=== PATIENT | female | born 1950 | race Caucasian/White ===

== ENCOUNTER 2018-02-01 13:23 | Inpatient (IN) ==
[2018-02-01] MEDS ORDERED: DIGOXIN 0.5 MG/2 ML AMP IV ONE (14:44)
[2018-02-01 15:25] LABS: Basophils % 0.6 % (0.0-0.8); Eosinophils # 0.1 10*3/uL (0.0-0.87); Eosinophils % 1.6 % (0.00-10.9); Hemoglobin 15.3 GM/DL (12.0-16.0); Immature Granulocytes % 0.3 %; Immature Granulocytes Absolute 0.02 #; Lymphocytes # 1.4 10*3/uL (1.4-4.0); Lymphocytes % 22.1 % (21.3-54.2); Mean Corpuscular HGB Conc 34.8 GM/DL (32-36); Mean Corpuscular Hemoglobin 31 PG (27-34); Mean Corpuscular Volume 90.3 FL (87-102); Mean Platelet Volume 10.8 FL (9.6-12.0); Monocytes # 0.4 10*3/uL (0.11-0.8); Monocytes % 6.6 % (1.7-12.7); Neutrophils # 4.3 10*3/uL (1.4-7.4); Neutrophils % 68.8 % (38.7-73.9); Platelet Count 202 T/CUMM (130-400); Red Blood Count 4.87 MC/CUMM (3.8-5.5); Red Cell Distribution Width 12.5 % (9.3-17.3); White Blood Count 6.2 T/CUMM (4-12)
[2018-02-01] MEDS: FUROSEMIDE 40 MG/4 ML VIAL IV SCH (15:38)
[2018-02-01] MEDS: DILTIAZEM INJ 100 MG in SODIUM CHLORIDE 0.9% 100 ML IV SCH (15:39)
[2018-02-01] MEDS ORDERED: diphenhydrAMINE 25 MG/10 ML UDCUP PO PRN (15:45)
[2018-02-01] MEDS ORDERED: ONDANSETRON 4 MG/2 ML VIAL IV PRN (15:46)
[2018-02-01] MEDS ORDERED: MAGNESIUM HYDROXIDE SUSP 30 ML UDCUP PO PRN (15:46)
[2018-02-01 15:48] LABS: Albumin 3.9 G/DL (3.4-5.0); Bilirubin,Total 0.5 MG/DL (0.2-1.0); Calcium 9.7 MG/DL (8.5-10.1); Osmolality,Calculated 285.3 MOS/KG (273-304); Potassium 3.9 MMOL/L (3.5-5.1); Total Protein 7.3 G/DL (6.4-8.3)
[2018-02-01] MEDS: RIVAROXABAN 20 MG TABLET PO SCH (16:20)
[2018-02-01 17:06] LABS: Apearance,Urine CLEAR (Clear); Bilirubin,Urine Negative (Negative); Blood, Urine Negative (Negative); Glucose,Urine (UA) Negative (Negative); Ketones,Urine Negative (Negative); Mucus,Urine Occasional /LPF (Occasional); Nitrite,Urine Negative (Negative); Protein,Urine Negative; Squamous Epithelial Cell,Urine Occasional /HPF (0-10); Urine Color Colorless (Yellow); Urine Specific Gravity 1.003 (1.001-1.035); Urine Urobilinogen < 2.0 EU/DL (0.2-1.0); WBC,Urine 1 /HPF (0-6)
[2018-02-01] MEDS: POTASSIUM CHLORIDE 20 MEQ TABLET PO SCH (20:22)
[2018-02-01] MEDS: ASCORBIC ACID 500 MG TABLET PO SCH (20:22)
[2018-02-01] MEDS ORDERED: [UNRECOGNIZED DRUG - OTHER] PO SCH (21:00)
[2018-02-01] MEDS: PANTOPRAZOLE 40 MG TABLET PO SCH (21:22)
[2018-02-02 05:08] LABS: Basophils % 0.7 % (0.0-0.8); Eosinophils # 0.1 10*3/uL (0.0-0.87); Eosinophils % 2.3 % (0.00-10.9); Immature Granulocytes % 0.4 %; Immature Granulocytes Absolute 0.02 #; Lymphocytes # 1.7 10*3/uL (1.4-4.0); Lymphocytes % 29.5 % (21.3-54.2); Mean Corpuscular HGB Conc 34.9 GM/DL (32-36); Mean Corpuscular Hemoglobin 32 PG (27-34); Mean Corpuscular Volume 90.3 FL (87-102); Mean Platelet Volume 10.5 FL (9.6-12.0); Monocytes # 0.5 10*3/uL (0.11-0.8); Monocytes % 8.7 % (1.7-12.7); Neutrophils # 3.3 10*3/uL (1.4-7.4); Neutrophils % 58.4 % (38.7-73.9); Platelet Count 210 T/CUMM (130-400); Red Blood Count 4.76 MC/CUMM (3.8-5.5); Red Cell Distribution Width 12.4 % (9.3-17.3); White Blood Count 5.6 T/CUMM (4-12)
[2018-02-02 05:43] LABS: Calcium 8.7 MG/DL (8.5-10.1); Osmolality,Calculated 286.1 MOS/KG (273-304); Potassium 3.6 MMOL/L (3.5-5.1); Risk Ratio 2.93; VLDL CHOLESTEROL 11.6 MG/DL
[2018-02-02] MEDS ORDERED: POTASSIUM CHLORIDE 20 MEQ TABLET PO SCH (09:00)
[2018-02-02] MEDS ORDERED: [UNRECOGNIZED DRUG - OTHER] PO SCH (09:00)
[2018-02-02] MEDS ORDERED: PANTOPRAZOLE 40 MG TABLET PO SCH (09:00)
[2018-02-02] MEDS ORDERED: ALFALFA COMPLEX PO SCH (09:00)
[2018-02-02] MEDS: ASCORBIC ACID 500 MG TABLET PO SCH ×2 (09:01→21:05)
[2018-02-02] MEDS: FUROSEMIDE 40 MG/4 ML VIAL IV SCH (09:01)
[2018-02-02] MEDS: CHOLECALCIFEROL 1,000 UNIT TABLET PO SCH (09:01)
[2018-02-02] MEDS: POTASSIUM CHLORIDE 20 MEQ TABLET PO SCH (09:01)
[2018-02-02] MEDS: DILTIAZEM INJ 100 MG in SODIUM CHLORIDE 0.9% 100 ML IV SCH (09:02)
[2018-02-02] MEDS ORDERED: DILTIAZEM 30 MG TABLET PO SCH (12:30)
[2018-02-02] MEDS ORDERED: DILTIAZEM 30 MG TABLET PO ONE ×2 (12:30→16:00)
[2018-02-02] MEDS ORDERED: DILTIAZEM CD 180 MG CAPSULE PO ONE (14:45)
[2018-02-02] MEDS ORDERED: SODIUM CHLORIDE 0.9% 500 ML IV ONE (14:47)
[2018-02-02] MEDS: RIVAROXABAN 20 MG TABLET PO SCH (16:29)
[2018-02-02] MEDS: SODIUM CHLORIDE 0.9% 1,000 ML IV SCH (17:49)
[2018-02-02] MEDS: PANTOPRAZOLE 40 MG TABLET PO SCH (21:06)
[2018-02-02] MEDS: DILTIAZEM CD 180 MG CAPSULE PO SCH (21:06)
[2018-02-03] MEDS: SODIUM CHLORIDE 0.9% 1,000 ML IV SCH (04:20)
[2018-02-03 05:53] LABS: Basophils % 0.6 % (0.0-0.8); Eosinophils # 0.2 10*3/uL (0.0-0.87); Eosinophils % 3.1 % (0.00-10.9); Hemoglobin 15.2 GM/DL (12.0-16.0); Immature Granulocytes % 0.2 %; Immature Granulocytes Absolute 0.01 #; Lymphocytes # 1.2 10*3/uL (1.4-4.0); Lymphocytes % 23.4 % (21.3-54.2); Mean Corpuscular HGB Conc 34.5 GM/DL (32-36); Mean Corpuscular Hemoglobin 32 PG (27-34); Mean Corpuscular Volume 91.1 FL (87-102); Mean Platelet Volume 10.6 FL (9.6-12.0); Monocytes # 0.5 10*3/uL (0.11-0.8); Monocytes % 9.1 % (1.7-12.7); Neutrophils # 3.3 10*3/uL (1.4-7.4); Neutrophils % 63.6 % (38.7-73.9); Platelet Count 201 T/CUMM (130-400); Red Blood Count 4.83 MC/CUMM (3.8-5.5); Red Cell Distribution Width 12.4 % (9.3-17.3); White Blood Count 5.2 T/CUMM (4-12)
[2018-02-03 06:27] LABS: Calcium 8.7 MG/DL (8.5-10.1); Potassium 4.3 MMOL/L (3.5-5.1)
[2018-02-03] MEDS ORDERED: FUROSEMIDE 40 MG TABLET PO SCH (09:00)
[2018-02-03] MEDS: DILTIAZEM CD 180 MG CAPSULE PO SCH (09:20)
[2018-02-03] MEDS: CHOLECALCIFEROL 1,000 UNIT TABLET PO SCH (09:20)
[2018-02-03] MEDS: ASCORBIC ACID 500 MG TABLET PO SCH (09:20)
[2018-02-03] MEDS: POTASSIUM CHLORIDE 20 MEQ TABLET PO SCH (09:20)
[2018-02-03 12:07] VITALS: BP 119/76
== END 2018-02-03 13:45 | disposition home or self-care (01) | DRG 310 ==
LOC: N.TELEN 14:12
PROVIDERS: ADMIT Internal Medicine Cardiovascular Disease; ATTEND Internal Medicine Cardiovascular Disease

== ENCOUNTER 2020-08-05 10:32 | Inpatient (IN) ==
[2020-08-05 11:58] LABS: Basophils % 0.2 % (0.0-0.8); Eosinophils % 0.7 % (0.00-10.9); Hematocrit 45.9 VOL% (35.7-47.0); Hemoglobin 16.3 GM/DL (12.0-16.0); Immature Granulocytes % 0.5 %; Immature Granulocytes Absolute 0.03 #; Lymphocytes # 0.5 10*3/uL (1.4-4.0); Lymphocytes % 8.1 % (21.3-54.2); Mean Corpuscular HGB Conc 35.5 GM/DL (32-36); Mean Corpuscular Volume 92.4 FL (87-102); Mean Platelet Volume 11.3 FL (9.6-12.0); Monocytes % 4.5 % (1.7-12.7); Platelet Count 140 T/CUMM (130-400); Red Blood Count 4.97 MC/CUMM (3.8-5.5); White Blood Count 5.8 T/CUMM (4-12)
[2020-08-05 12:05] LABS: INR 1.2
[2020-08-05 12:16] LABS: Anisocytosis Slight; Macrocytosis 1+; Platelet Estimate Adequate
[2020-08-05 12:22] LABS: Calcium 8.8 MG/DL (8.5-10.1); Osmolality,Calculated 289.1 MOS/KG (273-304)
[2020-08-05] MEDS ORDERED: DILTIAZEM 50 MG/10 ML VIAL IV STA (12:38)
[2020-08-05] MEDS ORDERED: MAGNESIUM SULF RIDER 2 GM in PREMIX 1 EACH IV PRN (13:21)
[2020-08-05] MEDS ORDERED: MAGNESIUM SULF RIDER 4 GM in PREMIX 1 EACH IV PRN (13:21)
[2020-08-05] MEDS ORDERED: ONDANSETRON 4 MG/2 ML VIAL IV PRN (13:21)
[2020-08-05] MEDS ORDERED: HYDROCORTISONE 2.5% RECTAL CREAM 30 GM TUBE TOP PRN (13:24)
[2020-08-05] MEDS: SODIUM CHLORIDE 0.45% 1,000 ML IV SCH (13:40)
[2020-08-05] MEDS: dilTIAZem Drip 125 MG/125 ML PREMIX IV SCH (13:46)
[2020-08-05] MEDS ORDERED: ACETAMINOPHEN 500 MG TABLET PO STA (14:57)
[2020-08-05] MEDS ORDERED: GLUCAGON 1 MG VIAL IM PRN (20:38)
[2020-08-05] MEDS ORDERED: CALCIUM CARBONATE CHEW 500 MG TABLET PO PRN (20:38)
[2020-08-05] MEDS ORDERED: SIMETHICONE CHEW 125 MG TABLET PO PRN (20:38)
[2020-08-05] MEDS ORDERED: DEXTROSE 50% 25 GM/50 ML VIAL IV PRN (20:38)
[2020-08-05] MEDS ORDERED: ZALEPLON 5 MG CAPSULE PO PRN (20:38)
[2020-08-05] MEDS ORDERED: ALUMINUM/MAGNES/SIMETH MAX STR 30 ML UDCUP PO PRN (20:38)
[2020-08-05] MEDS ORDERED: BISACODYL 5 MG TABLET PO PRN (20:38)
[2020-08-05] MEDS ORDERED: guaiFENesin/DM ER 600-30 MG TABLET PO PRN (20:38)
[2020-08-05] MEDS: INSULIN LISPRO 100 UNIT/ML SUBCUT SCH (20:54)
[2020-08-05] MEDS: NITROFURANTOIN MACRO/MONO 100 MG CAPSULE PO SCH (23:18)
[2020-08-05] MEDS: ASCORBIC ACID 500 MG TABLET PO SCH (23:18)
[2020-08-05] MEDS: POTASSIUM CHLORIDE 10 MEQ TABLET PO SCH (23:19)
[2020-08-05] MEDS: SOLIFENACIN 5 MG TABLET PO SCH (23:19)
[2020-08-06 02:45] LABS: Bilirubin,Urine Negative (Negative); Blood, Urine Negative (Negative); Glucose,Urine (UA) Negative (Negative); Ketones,Urine Negative (Negative); Mucus,Urine Occasional /LPF (Occasional); Nitrite,Urine Negative (Negative); Protein,Urine Negative; RBC,Urine <1 /HPF (0-4); Urine Appearance CLEAR (Clear); Urine Color Yellow (Yellow); Urine Specific Gravity 1.011 (1.001-1.035); Urine Urobilinogen < 2.0 EU/DL (0.2-1.0); WBC,Urine <1 /HPF (0-6)
[2020-08-06 04:59] LABS: Basophils % 0.3 % (0.0-0.8); Eosinophils # 0.3 10*3/uL (0.0-0.87); Eosinophils % 4.3 % (0.00-10.9); Hemoglobin 14.8 GM/DL (12.0-16.0); Immature Granulocytes % 0.5 %; Immature Granulocytes Absolute 0.03 #; Lymphocytes # 1.1 10*3/uL (1.4-4.0); Lymphocytes % 16.8 % (21.3-54.2); Mean Corpuscular HGB Conc 35.2 GM/DL (32-36); Mean Corpuscular Volume 91.7 FL (87-102); Mean Platelet Volume 10.9 FL (9.6-12.0); Monocytes % 7.9 % (1.7-12.7); Neutrophils % 70.2 % (38.7-73.9); Platelet Count 132 T/CUMM (130-400); Red Blood Count 4.58 MC/CUMM (3.8-5.5); Red Cell Distribution Width 12.9 % (9.3-17.3); White Blood Count 6.3 T/CUMM (4-12)
[2020-08-06 05:11] LABS: Calcium 8.7 MG/DL (8.5-10.1); Osmolality,Calculated 281.4 MOS/KG (273-304)
[2020-08-06] MEDS: JOINT HEALTH PO SCH ×3 (06:24→21:24)
[2020-08-06] MEDS: CYANOCOBALAMIN PO SCH ×3 (06:24→21:24)
[2020-08-06] MEDS: HERB LAX PO SCH ×2 (06:24→21:24)
[2020-08-06] MEDS: PYRIDOXINE PO SCH ×3 (06:24→21:24)
[2020-08-06] MEDS: FOLIC ACID PO SCH ×3 (06:24→21:24)
[2020-08-06] MEDS ORDERED: FUROSEMIDE 40 MG TABLET PO SCH (09:00)
[2020-08-06] MEDS ORDERED: RIVAROXABAN 20 MG TABLET PO SCH ×2 (09:00→10:00)
[2020-08-06] MEDS ORDERED: AMIODARONE 200 MG TABLET PO SCH (09:00)
[2020-08-06] MEDS ORDERED: NON-FORMULARY MEDICATION (Omeprazole 20 MG capsule,delayed release(DR/EC)) PO SCH (09:00)
[2020-08-06] MEDS: POTASSIUM CHLORIDE 10 MEQ TABLET PO SCH ×2 (09:05→21:25)
[2020-08-06] MEDS: ASCORBIC ACID 500 MG TABLET PO SCH ×2 (09:05→21:25)
[2020-08-06] MEDS: INSULIN LISPRO 100 UNIT/ML SUBCUT SCH ×4 (09:42→21:17)
[2020-08-06] MEDS ORDERED: DILTIAZEM CD 120 MG CAPSULE PO SCH (10:00)
[2020-08-06] MEDS: ASPIRIN CHEW 81 MG TABLET PO SCH (10:10)
[2020-08-06] MEDS: PANTOPRAZOLE 40 MG TABLET PO SCH (10:10)
[2020-08-06] MEDS: NITROFURANTOIN MACRO/MONO 100 MG CAPSULE PO SCH ×2 (10:10→21:25)
[2020-08-06] MEDS: SODIUM CHLORIDE 0.45% 1,000 ML IV SCH (10:17)
[2020-08-06] MEDS: LORATADINE 10 MG TABLET PO SCH (12:00)
[2020-08-06] MEDS: CHOLECALCIFEROL 1,000 UNIT TABLET PO SCH (12:00)
[2020-08-06] MEDS: ZINC GLUCONATE 50 MG TABLET PO SCH (12:00)
[2020-08-06] MEDS: [UNRECOGNIZED DRUG - OTHER] PO SCH (12:47)
[2020-08-06] MEDS: [UNRECOGNIZED DRUG - OTHER] PO SCH (12:47)
[2020-08-06] MEDS: [UNRECOGNIZED DRUG - OTHER] PO SCH (12:47)
[2020-08-06] MEDS: [UNRECOGNIZED DRUG - OTHER] PO SCH (12:47)
[2020-08-06] MEDS: ALFALFA COMPLEX PO SCH (12:47)
[2020-08-06] MEDS: BILLION CELL PO SCH (12:48)
[2020-08-06] MEDS: [UNRECOGNIZED DRUG - OTHER] PO SCH (12:48)
[2020-08-06] MEDS: PROBIOTIC PO SCH (12:48)
[2020-08-06] MEDS: [UNRECOGNIZED DRUG - OTHER] PO SCH (12:48)
[2020-08-06] MEDS: OSTEOMATRIX PO SCH (12:48)
[2020-08-06] MEDS: [UNRECOGNIZED DRUG - OTHER] PO SCH (12:48)
[2020-08-06] MEDS: ACETAMINOPHEN 325 MG TABLET PO PRN (20:15)
[2020-08-06] MEDS ORDERED: LORazepam 2 MG/1 ML VIAL IV PRN (21:05)
[2020-08-06 21:14] LABS: Calcium 8.6 MG/DL (8.5-10.1); Osmolality,Calculated 278.5 MOS/KG (273-304)
[2020-08-06] MEDS: dilTIAZem Drip 125 MG/125 ML PREMIX IV SCH (21:24)
[2020-08-06] MEDS: SOLIFENACIN 5 MG TABLET PO SCH (21:25)
[2020-08-07] MEDS: ACETAMINOPHEN 325 MG TABLET PO PRN ×2 (02:07→20:30)
[2020-08-07 06:12] LABS: Basophils % 0.6 % (0.0-0.8); Eosinophils # 0.5 10*3/uL (0.0-0.87); Eosinophils % 7.9 % (0.00-10.9); Hematocrit 41.1 VOL% (35.7-47.0); Hemoglobin 14.3 GM/DL (12.0-16.0); Immature Granulocytes % 0.3 %; Immature Granulocytes Absolute 0.02 #; Lymphocytes # 1.3 10*3/uL (1.4-4.0); Lymphocytes % 19.3 % (21.3-54.2); Mean Corpuscular HGB Conc 34.8 GM/DL (32-36); Mean Platelet Volume 11.6 FL (9.6-12.0); Monocytes % 10.2 % (1.7-12.7); Neutrophils % 61.7 % (38.7-73.9); Platelet Count 142 T/CUMM (130-400); Red Blood Count 4.42 MC/CUMM (3.8-5.5); White Blood Count 6.5 T/CUMM (4-12)
[2020-08-07 06:28] LABS: Calcium 9.1 MG/DL (8.5-10.1); Osmolality,Calculated 285.1 MOS/KG (273-304)
[2020-08-07] MEDS: SODIUM CHLORIDE 0.45% 1,000 ML IV SCH (07:05)
[2020-08-07] MEDS ORDERED: VANCOMYCIN INJ 1,000 MG in SODIUM CHLORIDE 0.9% 250 ML IV ONE (08:38)
[2020-08-07] MEDS ORDERED: VANCOMYCIN 500 MG VIAL IRRIG ONE (08:38)
[2020-08-07] MEDS ORDERED: diphenhydrAMINE CAP 25 MG CAPSULE PO ONE (08:38)
[2020-08-07] MEDS ORDERED: DIAZEPAM 5 MG TABLET PO ONE (08:38)
[2020-08-07] MEDS: INSULIN LISPRO 100 UNIT/ML SUBCUT SCH ×4 (08:39→22:42)
[2020-08-07] MEDS: PANTOPRAZOLE 40 MG TABLET PO SCH (08:54)
[2020-08-07] MEDS: CHOLECALCIFEROL 1,000 UNIT TABLET PO SCH (08:55)
[2020-08-07] MEDS: LORATADINE 10 MG TABLET PO SCH (08:55)
[2020-08-07] MEDS: ZINC GLUCONATE 50 MG TABLET PO SCH (08:55)
[2020-08-07] MEDS: ASCORBIC ACID 500 MG TABLET PO SCH ×2 (08:55→21:40)
[2020-08-07] MEDS: ASPIRIN CHEW 81 MG TABLET PO SCH (08:55)
[2020-08-07] MEDS: POTASSIUM CHLORIDE 10 MEQ TABLET PO SCH ×2 (08:55→21:40)
[2020-08-07] MEDS: [UNRECOGNIZED DRUG - OTHER] PO SCH (09:58)
[2020-08-07] MEDS: [UNRECOGNIZED DRUG - OTHER] PO SCH (09:58)
[2020-08-07] MEDS: [UNRECOGNIZED DRUG - OTHER] PO SCH (09:58)
[2020-08-07] MEDS: CYANOCOBALAMIN PO SCH ×2 (09:58→22:42)
[2020-08-07] MEDS: ALFALFA COMPLEX PO SCH (09:58)
[2020-08-07] MEDS: JOINT HEALTH PO SCH ×2 (09:58→22:43)
[2020-08-07] MEDS: [UNRECOGNIZED DRUG - OTHER] PO SCH (09:58)
[2020-08-07] MEDS: [UNRECOGNIZED DRUG - OTHER] PO SCH (09:58)
[2020-08-07] MEDS: PYRIDOXINE PO SCH ×2 (09:58→22:42)
[2020-08-07] MEDS: FOLIC ACID PO SCH ×2 (09:58→22:42)
[2020-08-07] MEDS: [UNRECOGNIZED DRUG - OTHER] PO SCH (09:59)
[2020-08-07] MEDS: PROBIOTIC PO SCH (09:59)
[2020-08-07] MEDS: BILLION CELL PO SCH (09:59)
[2020-08-07] MEDS: [UNRECOGNIZED DRUG - OTHER] PO SCH (09:59)
[2020-08-07] MEDS: OSTEOMATRIX PO SCH (09:59)
[2020-08-07] MEDS ORDERED: LIDOCAINE 1%/EPI INJ 20 ML VIAL ONE (10:07)
[2020-08-07] MEDS ORDERED: VANCOMYCIN 500 MG VIAL ONE ×2 (10:07)
[2020-08-07] MEDS: NITROFURANTOIN MACRO/MONO 100 MG CAPSULE PO SCH ×2 (10:08→21:38)
[2020-08-07] MEDS: SODIUM CHLORIDE 0.9% 1,000 ML IV SCH (10:15)
[2020-08-07] MEDS ORDERED: HYDROmorphone 2 MG/1 ML VIAL ONE (10:23)
[2020-08-07] MEDS ORDERED: MIDAZOLAM 2 MG/2 ML VIAL ONE (10:23)
[2020-08-07] MEDS ORDERED: TISSUE ADHESIVE 1 EACH APPLICATOR TOP ONE (11:02)
[2020-08-07] MEDS: dilTIAZem Drip 125 MG/125 ML PREMIX IV SCH (12:08)
[2020-08-07] MEDS ORDERED: TUBERCULIN SKIN TEST 0.1 ML SYRINGE INTRADERM ONE ×2 (13:09→14:30)
[2020-08-07] MEDS ORDERED: MAGNESIUM HYDROXIDE SUSP 30 ML UDCUP PO PRN (16:30)
[2020-08-07] MEDS: SOLIFENACIN 5 MG TABLET PO SCH (21:41)
[2020-08-07] MEDS: HERB LAX PO SCH (22:42)
[2020-08-08] MEDS: ACETAMINOPHEN 325 MG TABLET PO PRN ×2 (03:29→20:25)
[2020-08-08 06:05] LABS: Basophils % 0.4 % (0.0-0.8); Eosinophils # 0.5 10*3/uL (0.0-0.87); Eosinophils % 6.4 % (0.00-10.9); Hematocrit 39.8 VOL% (35.7-47.0); Hemoglobin 13.7 GM/DL (12.0-16.0); Immature Granulocytes % 0.3 %; Immature Granulocytes Absolute 0.02 #; Lymphocytes # 1.5 10*3/uL (1.4-4.0); Lymphocytes % 18.2 % (21.3-54.2); Mean Corpuscular HGB Conc 34.4 GM/DL (32-36); Mean Corpuscular Volume 93.2 FL (87-102); Mean Platelet Volume 10.9 FL (9.6-12.0); Monocytes % 12.9 % (1.7-12.7); Neutrophils % 61.8 % (38.7-73.9); Platelet Count 128 T/CUMM (130-400); Red Blood Count 4.27 MC/CUMM (3.8-5.5); Red Cell Distribution Width 12.7 % (9.3-17.3)
[2020-08-08 06:08] LABS: Calcium 8.9 MG/DL (8.5-10.1); Osmolality,Calculated 279.4 MOS/KG (273-304)
[2020-08-08 06:39] LABS: Hypochromasia Slight; Microcytosis Slight; Ovalocytes Slight; Platelet Estimate Adequate
[2020-08-08] MEDS: SODIUM CHLORIDE 0.45% 1,000 ML IV SCH (08:03)
[2020-08-08] MEDS: CHOLECALCIFEROL 1,000 UNIT TABLET PO SCH (08:38)
[2020-08-08] MEDS: ASPIRIN CHEW 81 MG TABLET PO SCH (08:38)
[2020-08-08] MEDS: NITROFURANTOIN MACRO/MONO 100 MG CAPSULE PO SCH ×2 (08:38→21:32)
[2020-08-08] MEDS: ZINC GLUCONATE 50 MG TABLET PO SCH (08:39)
[2020-08-08] MEDS: POTASSIUM CHLORIDE 10 MEQ TABLET PO SCH ×2 (08:39→21:32)
[2020-08-08] MEDS: LORATADINE 10 MG TABLET PO SCH (08:39)
[2020-08-08] MEDS: ASCORBIC ACID 500 MG TABLET PO SCH ×2 (08:40→21:32)
[2020-08-08] MEDS: PANTOPRAZOLE 40 MG TABLET PO SCH (08:40)
[2020-08-08] MEDS: INSULIN LISPRO 100 UNIT/ML SUBCUT SCH ×4 (09:23→22:11)
[2020-08-08] MEDS: CYANOCOBALAMIN PO SCH ×2 (09:24→22:03)
[2020-08-08] MEDS: [UNRECOGNIZED DRUG - OTHER] PO SCH (09:24)
[2020-08-08] MEDS: OSTEOMATRIX PO SCH (09:24)
[2020-08-08] MEDS: FOLIC ACID PO SCH ×2 (09:24→22:03)
[2020-08-08] MEDS: PYRIDOXINE PO SCH ×2 (09:24→22:03)
[2020-08-08] MEDS: [UNRECOGNIZED DRUG - OTHER] PO SCH (09:24)
[2020-08-08] MEDS: [UNRECOGNIZED DRUG - OTHER] PO SCH (09:24)
[2020-08-08] MEDS: [UNRECOGNIZED DRUG - OTHER] PO SCH (09:24)
[2020-08-08] MEDS: BILLION CELL PO SCH (09:24)
[2020-08-08] MEDS: JOINT HEALTH PO SCH ×2 (09:24→22:11)
[2020-08-08] MEDS: PROBIOTIC PO SCH (09:24)
[2020-08-08] MEDS: [UNRECOGNIZED DRUG - OTHER] PO SCH (09:25)
[2020-08-08] MEDS: SODIUM CHLORIDE 0.9% 1,000 ML IV SCH (09:25)
[2020-08-08] MEDS: [UNRECOGNIZED DRUG - OTHER] PO SCH (09:25)
[2020-08-08] MEDS: ALFALFA COMPLEX PO SCH (09:25)
[2020-08-08] MEDS: [UNRECOGNIZED DRUG - OTHER] PO SCH (09:25)
[2020-08-08] MEDS: DILTIAZEM CD 120 MG CAPSULE PO SCH (10:27)
[2020-08-08] MEDS: LACTULOSE 20 GM/30 ML UDCUP PO PRN (14:17)
[2020-08-08] MEDS ORDERED: RIVAROXABAN 20 MG TABLET PO SCH (17:00)
[2020-08-08] MEDS: SOLIFENACIN 5 MG TABLET PO SCH (21:32)
[2020-08-08] MEDS: HERB LAX PO SCH (22:03)
[2020-08-09] MEDS: LACTULOSE 20 GM/30 ML UDCUP PO PRN (01:12)
[2020-08-09] MEDS: ACETAMINOPHEN 325 MG TABLET PO PRN (04:40)
[2020-08-09] MEDS: INSULIN LISPRO 100 UNIT/ML SUBCUT SCH (09:19)
[2020-08-09] MEDS: ZINC GLUCONATE 50 MG TABLET PO SCH (09:39)
[2020-08-09] MEDS: CHOLECALCIFEROL 1,000 UNIT TABLET PO SCH (09:39)
[2020-08-09] MEDS: LORATADINE 10 MG TABLET PO SCH (09:40)
[2020-08-09] MEDS: DILTIAZEM CD 120 MG CAPSULE PO SCH (09:40)
[2020-08-09] MEDS: POTASSIUM CHLORIDE 10 MEQ TABLET PO SCH (09:40)
[2020-08-09] MEDS: ASPIRIN CHEW 81 MG TABLET PO SCH (09:40)
[2020-08-09] MEDS: PANTOPRAZOLE 40 MG TABLET PO SCH (09:40)
[2020-08-09] MEDS: CYANOCOBALAMIN PO SCH (09:41)
[2020-08-09] MEDS: [UNRECOGNIZED DRUG - OTHER] PO SCH (09:41)
[2020-08-09] MEDS: FOLIC ACID PO SCH (09:41)
[2020-08-09] MEDS: [UNRECOGNIZED DRUG - OTHER] PO SCH (09:41)
[2020-08-09] MEDS: ASCORBIC ACID 500 MG TABLET PO SCH (09:41)
[2020-08-09] MEDS: PYRIDOXINE PO SCH (09:41)
[2020-08-09] MEDS: [UNRECOGNIZED DRUG - OTHER] PO SCH (09:41)
[2020-08-09] MEDS: ALFALFA COMPLEX PO SCH (09:41)
[2020-08-09] MEDS: PROBIOTIC PO SCH (09:42)
[2020-08-09] MEDS: [UNRECOGNIZED DRUG - OTHER] PO SCH (09:42)
[2020-08-09] MEDS: BILLION CELL PO SCH (09:42)
[2020-08-09] MEDS: JOINT HEALTH PO SCH (09:42)
[2020-08-09] MEDS: [UNRECOGNIZED DRUG - OTHER] PO SCH (09:42)
[2020-08-09] MEDS: OSTEOMATRIX PO SCH (09:42)
[2020-08-09] MEDS: [UNRECOGNIZED DRUG - OTHER] PO SCH (09:42)
[2020-08-09] MEDS: [UNRECOGNIZED DRUG - OTHER] PO SCH (09:42)
[2020-08-09 11:57] VITALS: BP 115/70
[2020-08-12] MEDS ORDERED: RISPERIDONE MICROSPHERES 25 MG/2 ML IM SCH (09:00)
== END 2020-08-09 12:10 | DRG 243 ==
LOC: N.EDINP 10:32 → N.ED 10:32 → OBSVTOIN 13:21 → N.TELEN 08-06 12:07 → N.ICU 08-06 20:45 → N.TELES 08-07 14:02
PROVIDERS: ADMIT Internal Medicine Cardiovascular Disease; ATTEND Internal Medicine Cardiovascular Disease

== ENCOUNTER 2020-11-23 13:46 | Inpatient (IN) ==
[2020-11-23 14:41] LABS: Basophils % 0.5 % (0.0-0.8); Eosinophils # 0.1 10*3/uL (0.0-0.87); Eosinophils % 1.5 % (0.00-10.9); Hemoglobin 14.2 GM/DL (12.0-16.0); Immature Granulocytes % 0.2 %; Immature Granulocytes Absolute 0.01 #; Lymphocytes # 0.9 10*3/uL (1.4-4.0); Lymphocytes % 15.2 % (21.3-54.2); Mean Corpuscular HGB Conc 34.6 GM/DL (32-36); Mean Platelet Volume 10.1 FL (9.6-12.0); Monocytes % 6.5 % (1.7-12.7); Neutrophils % 76.1 % (38.7-73.9); Platelet Count 176 T/CUMM (130-400); Red Blood Count 4.41 MC/CUMM (3.8-5.5); Red Cell Distribution Width 13.3 % (9.3-17.3)
[2020-11-23 15:13] LABS: Bilirubin,Total 0.5 MG/DL (0.2-1.0); Calcium 9.3 MG/DL (8.5-10.1); Osmolality,Calculated 281.4 MOS/KG (273-304); Potassium 4.1 MMOL/L (3.5-5.1); Total Protein 6.7 G/DL (6.4-8.2)
[2020-11-23] MEDS ORDERED: GLUCAGON 1 MG VIAL IM PRN (16:25)
[2020-11-23] MEDS ORDERED: MAGNESIUM SULF RIDER 4 GM in PREMIX 1 EACH IV PRN (16:25)
[2020-11-23] MEDS ORDERED: BISACODYL 5 MG TABLET PO PRN (16:25)
[2020-11-23] MEDS ORDERED: DEXTROSE 50% 25 GM/50 ML VIAL IV PRN (16:25)
[2020-11-23] MEDS ORDERED: MAGNESIUM SULF RIDER 2 GM in PREMIX 1 EACH IV PRN (16:25)
[2020-11-23] MEDS ORDERED: DOCUSATE SODIUM 100 MG CAPSULE PO PRN (16:25)
[2020-11-23] MEDS ORDERED: SIMETHICONE CHEW 125 MG TABLET PO PRN (16:25)
[2020-11-23] MEDS ORDERED: diphenhydrAMINE CAP 25 MG CAPSULE PO PRN (16:25)
[2020-11-23] MEDS ORDERED: ONDANSETRON 4 MG/2 ML VIAL IV PRN (16:25)
[2020-11-23] MEDS ORDERED: INSULIN REGULAR 100 UNIT/ML SUBCUT SCH (16:30)
[2020-11-23 19:00] LABS: Bilirubin,Urine Negative (Negative); Blood, Urine Negative (Negative); Glucose,Urine (UA) Negative (Negative); Ketones,Urine Negative (Negative); Mucus,Urine Occasional /LPF (Occasional); Nitrite,Urine Negative (Negative); Protein,Urine Negative; RBC,Urine 1 /HPF (0-4); Urine Appearance CLEAR (Clear); Urine Color Yellow (Yellow); Urine Specific Gravity 1.005 (1.001-1.035); Urine Urobilinogen < 2.0 EU/DL (0.2-1.0); WBC,Urine 26 /HPF (0-6)
[2020-11-23] MEDS: RIVAROXABAN 20 MG TABLET PO SCH (19:40)
[2020-11-23] MEDS: SOLIFENACIN 5 MG TABLET PO SCH (20:38)
[2020-11-23] MEDS: POTASSIUM CHLORIDE 10 MEQ TABLET PO SCH (20:39)
[2020-11-23] MEDS: DILTIAZEM CD 180 MG CAPSULE PO SCH (20:39)
[2020-11-23] MEDS: ALUMINUM/MAGNES/SIMETH MAX STR 30 ML UDCUP PO PRN (20:53)
[2020-11-24 05:41] LABS: Basophils % 0.8 % (0.0-0.8); Eosinophils # 0.2 10*3/uL (0.0-0.87); Eosinophils % 3.2 % (0.00-10.9); Hematocrit 41.3 VOL% (35.7-47.0); Immature Granulocytes % 0.4 %; Immature Granulocytes Absolute 0.02 #; Lymphocytes # 1.3 10*3/uL (1.4-4.0); Mean Corpuscular HGB Conc 33.9 GM/DL (32-36); Mean Corpuscular Volume 94.3 FL (87-102); Mean Platelet Volume 10.3 FL (9.6-12.0); Monocytes % 9.9 % (1.7-12.7); Neutrophils % 61.7 % (38.7-73.9); Platelet Count 176 T/CUMM (130-400); Red Blood Count 4.38 MC/CUMM (3.8-5.5); Red Cell Distribution Width 13.2 % (9.3-17.3); White Blood Count 5.3 T/CUMM (4-12)
[2020-11-24 06:24] LABS: Calcium 8.9 MG/DL (8.5-10.1); Osmolality,Calculated 286.8 MOS/KG (273-304); Potassium 3.3 MMOL/L (3.5-5.1); Thyroid Stimulating Hormone 2.03 uIU/ml (0.358-3.74)
[2020-11-24] MEDS: ASPIRIN CHEW 81 MG TABLET PO SCH (09:03)
[2020-11-24] MEDS: CHOLECALCIFEROL 1,000 UNIT TABLET PO SCH (09:03)
[2020-11-24] MEDS: PANTOPRAZOLE 40 MG TABLET PO SCH (09:04)
[2020-11-24] MEDS: DILTIAZEM CD 180 MG CAPSULE PO SCH ×2 (09:04→19:28)
[2020-11-24] MEDS: LORATADINE 10 MG TABLET PO SCH (09:04)
[2020-11-24] MEDS: POTASSIUM CHLORIDE 10 MEQ TABLET PO SCH ×2 (09:04→19:28)
[2020-11-24] MEDS ORDERED: POTASSIUM CHLORIDE 20 MEQ TABLET PO ONE (10:04)
[2020-11-24] MEDS: DILTIAZEM 30 MG TABLET PO SCH ×3 (10:55→19:28)
[2020-11-24] MEDS: RIVAROXABAN 20 MG TABLET PO SCH (16:24)
[2020-11-24] MEDS ORDERED: RIVAROXABAN 20 MG TABLET PO SCH (17:00)
[2020-11-24] MEDS ORDERED: AMIODARONE INJ 450 MG in DEXTROSE 5% 241 ML IV SCH (18:30)
[2020-11-24] MEDS: SOLIFENACIN 5 MG TABLET PO SCH (19:28)
[2020-11-25] MEDS: AMIODARONE INJ 450 MG in DEXTROSE 5% 241 ML IV SCH ×3 (03:15→18:01)
[2020-11-25 05:51] LABS: Basophils % 0.8 % (0.0-0.8); Eosinophils # 0.2 10*3/uL (0.0-0.87); Eosinophils % 3.9 % (0.00-10.9); Hematocrit 40.5 VOL% (35.7-47.0); Immature Granulocytes % 0.2 %; Immature Granulocytes Absolute 0.01 #; Lymphocytes # 1.2 10*3/uL (1.4-4.0); Lymphocytes % 24.7 % (21.3-54.2); Mean Corpuscular HGB Conc 34.6 GM/DL (32-36); Mean Corpuscular Volume 93.1 FL (87-102); Mean Platelet Volume 9.8 FL (9.6-12.0); Monocytes % 11.7 % (1.7-12.7); Neutrophils % 58.7 % (38.7-73.9); Platelet Count 155 T/CUMM (130-400); Red Blood Count 4.35 MC/CUMM (3.8-5.5); Red Cell Distribution Width 13.2 % (9.3-17.3); White Blood Count 4.9 T/CUMM (4-12)
[2020-11-25 06:09] LABS: Calcium 8.9 MG/DL (8.5-10.1); Osmolality,Calculated 282.3 MOS/KG (273-304); Potassium 4.1 MMOL/L (3.5-5.1)
[2020-11-25] MEDS: SODIUM CHLORIDE 0.9% 1,000 ML IV SCH (09:39)
[2020-11-25] MEDS ORDERED: propofoL 200 MG/20 ML VIAL IV ONE (10:03)
[2020-11-25] MEDS: ASPIRIN CHEW 81 MG TABLET PO SCH (10:42)
[2020-11-25] MEDS: POTASSIUM CHLORIDE 10 MEQ TABLET PO SCH ×2 (10:42→20:53)
[2020-11-25] MEDS: CHOLECALCIFEROL 1,000 UNIT TABLET PO SCH (10:42)
[2020-11-25] MEDS: DILTIAZEM 30 MG TABLET PO SCH ×2 (10:42→14:16)
[2020-11-25] MEDS: LORATADINE 10 MG TABLET PO SCH (10:42)
[2020-11-25] MEDS: DILTIAZEM CD 180 MG CAPSULE PO SCH (10:42)
[2020-11-25] MEDS: PANTOPRAZOLE 40 MG TABLET PO SCH (10:43)
[2020-11-25] MEDS: RIVAROXABAN 20 MG TABLET PO SCH (17:21)
[2020-11-25] MEDS: AMIODARONE 200 MG TABLET PO SCH (20:53)
[2020-11-25] MEDS: ALUMINUM/MAGNES/SIMETH MAX STR 30 ML UDCUP PO PRN (20:53)
[2020-11-25] MEDS: SOLIFENACIN 5 MG TABLET PO SCH (20:53)
[2020-11-26 05:48] LABS: Basophils % 0.7 % (0.0-0.8); Eosinophils # 0.2 10*3/uL (0.0-0.87); Eosinophils % 4.4 % (0.00-10.9); Immature Granulocytes % 0.2 %; Immature Granulocytes Absolute 0.01 #; Lymphocytes # 0.9 10*3/uL (1.4-4.0); Lymphocytes % 21.7 % (21.3-54.2); Mean Corpuscular Volume 91.3 FL (87-102); Mean Platelet Volume 10.3 FL (9.6-12.0); Monocytes % 8.8 % (1.7-12.7); Neutrophils % 64.2 % (38.7-73.9); Platelet Count 168 T/CUMM (130-400); Red Blood Count 4.38 MC/CUMM (3.8-5.5); Red Cell Distribution Width 12.8 % (9.3-17.3); White Blood Count 4.1 T/CUMM (4-12)
[2020-11-26 06:06] LABS: Calcium 8.8 MG/DL (8.5-10.1); Osmolality,Calculated 282.3 MOS/KG (273-304); Potassium 3.7 MMOL/L (3.5-5.1)
[2020-11-26] MEDS ORDERED: DILTIAZEM CD 120 MG CAPSULE PO SCH (09:00)
[2020-11-26] MEDS ORDERED: HYDROCORTISONE 1% CREAM 28 GM TUBE TOP PRN (09:26)
[2020-11-26] MEDS: SODIUM CHLORIDE 0.9% 1,000 ML IV SCH (09:29)
[2020-11-26] MEDS: ASPIRIN CHEW 81 MG TABLET PO SCH (09:30)
[2020-11-26] MEDS: POTASSIUM CHLORIDE 10 MEQ TABLET PO SCH (09:31)
[2020-11-26] MEDS: CHOLECALCIFEROL 1,000 UNIT TABLET PO SCH (09:31)
[2020-11-26] MEDS: PANTOPRAZOLE 40 MG TABLET PO SCH (09:31)
[2020-11-26] MEDS: AMIODARONE 200 MG TABLET PO SCH (09:31)
[2020-11-26] MEDS: LORATADINE 10 MG TABLET PO SCH (09:31)
[2020-11-26 09:50] VITALS: BP 156/71
== END 2020-11-26 10:50 | disposition home or self-care (01) | DRG 310 ==
LOC: N.ED 13:46 → N.EDINP 13:46 → N.TELES 16:25
PROVIDERS: ADMIT Internal Medicine Cardiovascular Disease; ATTEND Internal Medicine Cardiovascular Disease